=== PATIENT | female | born 1985 | race Caucasian/White ===

== ENCOUNTER 2018-12-13 08:42 | Inpatient (IN) | payer MEDICARE, MEDICAID ==
[2018-12-13] VITALS (40 sets, daily range): BP systolic 78–154; BP diastolic 48–134; PULSE 117–127; RESP 21–42; Ht 160 cm; Wt 65.5 kg
[~2018-12-13] VITALS: Ht 160 cm; Wt 65.5 kg
[~2018-12-13 08:42] MED LIST: AMLO-147 PO; CHOL4POW PO; ERGO500013 PO; INSU100C SQ; LANT3I SC; MELA5TAB PO; MULT-105 PO; PANT40TA4 PO; PRED5TAB PO; QUET25TA33 PO; SODI650T PO; TACR1CAP PO; UDKCL40 PO; URSO300C3 PO; [UNRECOGNIZED DRUG - OTHER] PO
[2018-12-13] MEDS ORDERED: CEFEPIME 2GM/50 ML (PMX) 50 ML IVPB STA (08:52)
[2018-12-13] MEDS ORDERED: SODIUM CHLORIDE 0.9% 1L BAG IV* STA (08:52)
[2018-12-13] MEDS ORDERED: HYDROCORTISONE 250 MG INJ IV ONE (09:00)
[2018-12-13] MEDS ORDERED: VANCOMYCIN 1 GM (PMX) 250 ML IVPB ONE (09:00)
[2018-12-13] MEDS ORDERED: HYDROCORTISONE 100 MG INJ IV SCH (09:30)
[2018-12-13] MEDS ORDERED: NORepinephrine 8MG/250 ML (PMX 250 ML ONE (09:32)
[2018-12-13] MEDS ORDERED: PROPOFOL 100 ML IV STA (09:39)
[2018-12-13] MEDS: NORepinephrine 8MG/250 ML (PMX 250 ML IV SCH ×3 (09:52→20:47)
[2018-12-13] MEDS ORDERED: ETOMIDATE 20 MG INJ IV ONE (10:00)
[2018-12-13] MEDS ORDERED: SUCCINYLCHOLINE CHLORIDE 100 MG/5 ML SYG IV ONE (10:00)
[2018-12-13] MEDS ORDERED: ACETAMINOPHEN 325 MG TAB PO PRN (10:00)
[2018-12-13] MEDS ORDERED: ONDANSETRON 4 MG INJ IV PRN (10:00)
[2018-12-13] MEDS ORDERED: POTASSIUM CHLORIDE 50 ML IVPB ONE (10:00)
[2018-12-13] MEDS ORDERED: SOD CHLORIDE 0.9% 1,000 ML IV ONE ×2 (10:00→11:00)
[2018-12-13] MEDS ORDERED: ACETAMINOPHEN 120 MG SUPP PR ONE (10:00)
[2018-12-13] MEDS ORDERED: ALBUMIN HUMAN 25% 100 ML IV STA (10:52)
[2018-12-13] MEDS: FENTAnyl (DRIP) 1000 mcg/100mL 100 ML IV SCH (11:07)
[2018-12-13] MEDS: POTASSIUM CHLORIDE 50 ML IVPB SCH ×3 (12:03→19:01)
[2018-12-13] MEDS: MIDAZOLAM (DRIP) 50 mg/50 mL 50 ML IV SCH ×3 (13:01→19:05)
[2018-12-13] MEDS: SOD CHLORIDE 0.9% 1,000 ML IV SCH ×2 (14:37→20:28)
[2018-12-13] MEDS: HYDROCORTISONE 100 MG INJ IV SCH ×2 (14:58→22:27)
[2018-12-13] MEDS: URSODIOL 300 MG CAP PO SCH ×2 (14:58→21:49)
[2018-12-13] MEDS: PROPOFOL 100 ML IV SCH (14:59)
[2018-12-13] MEDS ORDERED: VANCOMYCIN IV PER PHARMACY XX SCH (16:30)
[2018-12-13] MEDS ORDERED: NA BICARBONATE 8.4% 50 ML SYG IV STA (17:15)
[2018-12-13] MEDS ORDERED: SODIUM CHLORIDE 0.9% 1L BAG IV* ONE (17:30)
[2018-12-13] MEDS: PHENYLephrine 40 MG in DEXTROSE 5% 246 ML IV SCH ×2 (18:38→23:55)
[2018-12-13] MEDS: MEROPENEM 1 GM/50ML(PMX) 50 ML IVPB SCH ×2 (19:57→22:00)
[2018-12-13] MEDS: metroNIDAZOLE 500 MG/NS (PMX) 100 ML IVPB SCH ×2 (19:57→22:00)
[2018-12-13] MEDS ORDERED: CASPOFUNGIN 70 MG in SOD CHLORIDE 0.9% 250 ML IVPB ONE (20:00)
[2018-12-13] MEDS: SODIUM BICARBONATE (IV ADD) 100 MEQ in DEXTROSE 5%-0.45% NACL 900 ML IV SCH (20:15)
[2018-12-13] MEDS ORDERED: NA BICARBONATE 650 MG TAB PO SCH (21:00)
[2018-12-13] MEDS ORDERED: TACROLIMUS 1 MG CAP PO SCH (21:00)
[2018-12-13] MEDS ORDERED: CHOLESTYRAMINE 4 GM PACKET PO SCH (21:00)
[2018-12-13] MEDS: VANCOMYCIN HCL 250 MG/5ML POSYG PO SCH (21:06)
[2018-12-13] MEDS: DEXTROSE 5% IVPB SCH (21:50)
[2018-12-13] MEDS: GANCICLOVIR IVPB SCH (21:50)
[2018-12-13] MEDS: VANCOMYCIN 1 GM 250 ML IVPB SCH (22:56)
[2018-12-14] VITALS (102 sets, daily range): BP systolic 45–156; BP diastolic 24–114; PULSE 89–119; RESP 19–38
[2018-12-14] MEDS: VANCOMYCIN HCL 250 MG/5ML POSYG PO SCH ×2 (00:30→05:50)
[2018-12-14] MEDS: MIDAZOLAM (DRIP) 50 mg/50 mL 50 ML IV SCH ×3 (00:40→17:28)
[2018-12-14] MEDS: NORepinephrine 8MG/250 ML (PMX 250 ML IV SCH ×3 (01:14→10:08)
[2018-12-14] MEDS: FENTAnyl (DRIP) 1000 mcg/100mL 100 ML IV SCH ×2 (02:09→15:59)
[2018-12-14] MEDS: PROPOFOL 100 ML IV SCH ×2 (03:00→15:00)
[2018-12-14] MEDS: SOD CHLORIDE 0.9% 1,000 ML IV SCH (04:42)
[2018-12-14] MEDS: PANTOPRAZOLE 40 MG INJ IV SCH (05:33)
[2018-12-14] MEDS: MEROPENEM 1 GM/50ML(PMX) 50 ML IVPB SCH ×2 (05:34→13:40)
[2018-12-14] MEDS: metroNIDAZOLE 500 MG/NS (PMX) 100 ML IVPB SCH ×3 (05:34→21:38)
[2018-12-14] MEDS: HYDROCORTISONE 100 MG INJ IV SCH ×3 (05:34→21:02)
[2018-12-14] MEDS: SODIUM BICARBONATE (IV ADD) 100 MEQ in DEXTROSE 5%-0.45% NACL 900 ML IV SCH (05:47)
[2018-12-14] MEDS: PHENYLephrine 40 MG in DEXTROSE 5% 246 ML IV SCH (05:49)
[2018-12-14] MEDS ORDERED: MAGNESIUM SULFATE 2 GM/50 ML 50 ML IVPB ONE ×2 (06:30→11:00)
[2018-12-14] MEDS ORDERED: MULTIVITAMINS/MINERALS TAB PO SCH (09:00)
[2018-12-14] MEDS: SODIUM BICARBONATE (IV ADD) 150 MEQ in DEXTROSE 5% 850 ML IV SCH ×3 (09:00→19:31)
[2018-12-14] MEDS ORDERED: NA BICARBONATE 8.4% 50 ML SYG IV ONE (09:00)
[2018-12-14] MEDS: DEXTROSE 5% IVPB SCH (09:43)
[2018-12-14] MEDS: GANCICLOVIR IVPB SCH (09:43)
[2018-12-14] MEDS: TACROLIMUS 1 MG CAP NGT SCH ×2 (09:52→21:04)
[2018-12-14] MEDS: CHOLESTYRAMINE 4 GM PACKET NGT SCH ×2 (09:52→21:04)
[2018-12-14] MEDS: NA BICARBONATE 650 MG TAB NGT SCH ×2 (09:52→21:03)
[2018-12-14] MEDS: URSODIOL 300 MG CAP NGT SCH ×3 (09:53→21:04)
[2018-12-14] MEDS: MULTIVITAMINS/MINERALS TAB NGT SCH (09:53)
[2018-12-14] MEDS: VANCOMYCIN 1 GM 250 ML IVPB SCH (11:21)
[2018-12-14] MEDS ORDERED: VANCOMYCIN HCL 250 MG/5ML POSYG NGT SCH (12:00)
[2018-12-14] MEDS ORDERED: AMIKACIN IV PER PHARMACY XX SCH (12:00)
[2018-12-14] MEDS: PHENYLephrine 80 MG in DEXTROSE 5% 242 ML IV SCH ×2 (12:25→23:32)
[2018-12-14] MEDS ORDERED: SOD CHLORIDE 0.9% IVPB ONE (13:30)
[2018-12-14] MEDS ORDERED: AMIKACIN IVPB ONE (13:30)
[2018-12-14] MEDS: INSULIN ASPART [NOVOLOG] 3 ML PEN SC SCH ×3 (13:39→21:17)
[2018-12-14] MEDS: NORepinephrine 32 MG in DEXTROSE 5% 218 ML IV SCH ×2 (14:36→23:10)
[2018-12-14] MEDS ORDERED: CASPOFUNGIN 35 MG in SOD CHLORIDE 0.9% 250 ML IVPB SCH (20:00)
[2018-12-14] MEDS ORDERED: CASPOFUNGIN 50 MG in SOD CHLORIDE 0.9% 250 ML IVPB SCH (20:00)
[2018-12-14 21:23] LABS: CMV DNA QL SOURCE WHOLE BLOOD
[2018-12-14] MEDS ORDERED: SOD CHLORIDE 0.9% 500 ML IV ONE (21:30)
[2018-12-14] MEDS ORDERED: DOPamine-D5W 1.6 MG/ML 250 ML IV SCH (21:30)
[2018-12-14] MEDS ORDERED: NA BICARBONATE 8.4% 50 ML SYG IV STA (21:51)
[2018-12-14] MEDS: VASOPRESSIN 60 UNIT in DEXTROSE 5% 57 ML IV SCH (22:16)
[2018-12-15] VITALS (85 sets, daily range): BP systolic 34–134; BP diastolic 18–121; PULSE 102–126; RESP 22–33
[2018-12-15] MEDS: INSULIN ASPART [NOVOLOG] 3 ML PEN SC SCH ×5 (00:42→18:38)
[2018-12-15] MEDS: MIDAZOLAM (DRIP) 50 mg/50 mL 50 ML IV SCH (01:02)
[2018-12-15] MEDS ORDERED: ACCU-CHEK XX SCH (02:00)
[2018-12-15] MEDS: PROPOFOL 100 ML IV SCH ×2 (03:00→15:00)
[2018-12-15] MEDS: PHENYLephrine 80 MG in DEXTROSE 5% 242 ML IV SCH ×2 (04:42→10:05)
[2018-12-15] MEDS: PANTOPRAZOLE 40 MG INJ IV SCH (05:48)
[2018-12-15] MEDS: metroNIDAZOLE 500 MG/NS (PMX) 100 ML IVPB SCH ×2 (05:48→14:24)
[2018-12-15] MEDS: SODIUM BICARBONATE (IV ADD) 150 MEQ in DEXTROSE 5% 850 ML IV SCH ×2 (05:58→18:30)
[2018-12-15] MEDS: FENTAnyl (DRIP) 1000 mcg/100mL 100 ML IV SCH (06:55)
[2018-12-15] MEDS ORDERED: NA BICARBONATE 8.4% 50 ML SYG IV STA (08:41)
[2018-12-15] MEDS ORDERED: CALCIUM GLUCONATE 10% 2 GM in DEXTROSE 5% 100 ML IVPB ONE (09:00)
[2018-12-15] MEDS ORDERED: FUROSEMIDE 40 MG INJ IV ONE (09:00)
[2018-12-15] MEDS: ALBUMIN HUMAN 25% 100 ML IV SCH ×2 (09:02→18:27)
[2018-12-15] MEDS: NA BICARBONATE 650 MG TAB NGT SCH (09:30)
[2018-12-15] MEDS: TACROLIMUS 1 MG CAP NGT SCH (09:30)
[2018-12-15] MEDS: MULTIVITAMINS/MINERALS TAB NGT SCH (09:31)
[2018-12-15] MEDS: URSODIOL 300 MG CAP NGT SCH ×2 (09:31→13:50)
[2018-12-15] MEDS: CHOLESTYRAMINE 4 GM PACKET NGT SCH (09:31)
[2018-12-15] MEDS ORDERED: PHYTONADIONE 10 MG in DEXTROSE 5% 50 ML IVPB ONE (10:30)
[2018-12-15] MEDS: VASOPRESSIN 60 UNIT in DEXTROSE 5% 57 ML IV SCH ×2 (11:32→18:40)
[2018-12-15] MEDS ORDERED: MEROPENEM 1 GM/50ML(PMX) 50 ML IVPB SCH (14:00)
[2018-12-15] MEDS ORDERED: HYDROCORTISONE 100 MG INJ IV SCH (14:00)
[2018-12-15] MEDS ORDERED: EPINEPHrine 4 MG in DEXTROSE 5% 246 ML IV SCH (15:00)
[2018-12-15] MEDS: NORepinephrine 32 MG in DEXTROSE 5% 218 ML IV SCH (18:37)
[2018-12-17] MEDS ORDERED: GANCICLOVIR IVPB SCH (09:00)
[2018-12-17] MEDS ORDERED: DEXTROSE 5% IVPB SCH (09:00)
== END 2018-12-15 19:20 | disposition other institution (70) | DRG 871 ==
LOC: E/R 08:42 → ICU 09:53 → SUATTDRO 10:49
PROVIDERS: ADMIT Internal Medicine; ATTEND Family Medicine
PROC: 0BH17EZ Insertion of Endotracheal Airway into Trachea, Via Natural or Artificial Opening (ICD-10-PCS; principal; 2018-12-13)
PROC: 5A1945Z Respiratory Ventilation, 24-96 Consecutive Hours (ICD-10-PCS; 2018-12-13)
PROC: 4A133R1 Monitoring of Arterial Saturation, Peripheral, Percutaneous Approach (ICD-10-PCS; 2018-12-13)
PROC: 02HV33Z Insertion of Infusion Device into Superior Vena Cava, Percutaneous Approach (ICD-10-PCS; 2018-12-13)
DX: A41.51 Sepsis due to Escherichia coli [E. coli] (principal); R65.21 Severe sepsis with septic shock; J96.00 Acute respiratory failure, unspecified whether with hypoxia or hypercapnia; N17.0 Acute kidney failure with tubular necrosis; G92 Toxic encephalopathy; J18.9 Pneumonia, unspecified organism; D68.9 Coagulation defect, unspecified; T86.41 Liver transplant rejection; T86.42 Liver transplant failure; E87.2 Acidosis; I10 Essential (primary) hypertension; F32.9 Major depressive disorder, single episode, unspecified; D53.1 Other megaloblastic anemias, not elsewhere classified; E11.9 Type 2 diabetes mellitus without complications; E87.6 Hypokalemia; E88.81 Metabolic syndrome and other insulin resistance; D63.8 Anemia in other chronic diseases classified elsewhere; E50.9 Vitamin A deficiency, unspecified; E56.0 Deficiency of vitamin E; E83.42 Hypomagnesemia; Y83.0 Surgical operation with transplant of whole organ as the cause of abnormal reaction of the patient, or of later complication, without mention of misadventure at the time of the procedure; Z79.4 Long term (current) use of insulin
CPT/HCPCS: 31500; 36415; 36600; 71045; 74176; 76775; 76942; 80048; 80053; 80197; 80202; 81001; 81003; 82043; 82140; 82550; 82553; 82803; 82962; 83605; 83690; 83735; 84100; 84145; 84155; 84300; 84484; 84703; 85025; 85049; 85610; 85670; 85730; 86641; 86850; 86900; 86901; 87070; 87081; 87086; 87400; 87496; 89220; 93005; 93306; 94002; 94003; 94770; 96374; 96375; C9113; J0171; J0278; J0610; J0692; J1265; J1720; J1815; J1940; J2185; J2250; J2370; J3010; J3370; J3475; J3480; J7030; J7040; J7042; J7050; J7070; J7507; P9047